=== PATIENT | female | born 1960 | race Caucasian/White ===

== ENCOUNTER 2018-10-02 08:45 | Day surgery (SDC) | payer OTHER ==
[2018-10-02] MEDS: DEXAMETHASONE 1 MG TAB PO (09:44)
[2018-10-02] MEDS: GABAPENTIN 300 MG CAP PO (09:44)
[2018-10-02] MEDS ORDERED: MIDAZOLAM 1 MG/ML 2 ML INJ (10:17)
[2018-10-02] MEDS ORDERED: LIDOCAINE 2% (SDV) 5 ML INJ ×2 (10:18→12:03)
[2018-10-02] MEDS ORDERED: PROPOFOL 20 ML ×2 (10:18→12:03)
[2018-10-02] MEDS ORDERED: ROPIVACAINE 0.5 % 30 ML VIAL (10:21)
[2018-10-02] MEDS: CEFAZOLIN 2 GM/50 ML (PMX) 50 ML IVPB (10:49)
[2018-10-02] MEDS: TRANEXAMIC ACID 1GM/100ML(PMX) 100 ML IVPB (11:15)
[2018-10-02] MEDS: EPINEPHrine 1 MG/ML 30 ML INJ IRR (11:34)
[2018-10-02] MEDS: TRANEXAMIC ACID 1GM/100ML(PMX) 100 ML (11:37)
[2018-10-02] MEDS ORDERED: ONDANSETRON 4 MG INJ (12:03)
[2018-10-02] MEDS ORDERED: ROCURONIUM 50 MG INJ (12:03)
[2018-10-02] MEDS ORDERED: GLYCOPYRROLATE 0.4 MG INJ (12:03)
[2018-10-02] MEDS ORDERED: NEOSTIGMINE 10 MG INJ (12:03)
[2018-10-02] MEDS ORDERED: METOCLOPRAMIDE 10 MG INJ (12:03)
[2018-10-02] MEDS ORDERED: LABETALOL HCL 20MG INJ (12:27)
[2018-10-02] MEDS ORDERED: DIPHENHYDRAMINE 50 MG INJ IV (12:30)
[2018-10-02] MEDS ORDERED: HYDROmorphONE 1 MG/5 ML IV SYRINGE IV ×2 (12:30)
[2018-10-02] MEDS ORDERED: MEPERIDINE 25 MG INJ IV (12:30)
[2018-10-02] MEDS ORDERED: ONDANSETRON 4 MG INJ IV (12:30)
[2018-10-02] MEDS ORDERED: FENTAnyl 50 MCG/ML VIAL IV (12:30)
[2018-10-02] MEDS ORDERED: hydrALAzine 20 MG INJ IV (12:30)
[2018-10-02] MEDS ORDERED: METOCLOPRAMIDE 10 MG INJ IV (12:30)
[2018-10-02] MEDS: LABETALOL HCL 20MG INJ IV ×2 (12:39→12:46)
== END 2018-10-02 14:10 | disposition home or self-care (01) ==
LOC: SDS 08:45
DX: S43.422A Sprain of left rotator cuff capsule, initial encounter (principal); M19.012 Primary osteoarthritis, left shoulder; E03.9 Hypothyroidism, unspecified; X58.XXXA Exposure to other specified factors, initial encounter; Y93.89 Activity, other specified; Y92.89 Other specified places as the place of occurrence of the external cause; Y99.8 Other external cause status
CPT/HCPCS: 29824